=== PATIENT | female | born 1970 | race African-American/Black ===

== ENCOUNTER 2017-01-02 15:08 | Inpatient (IN) | payer OTHER, MEDICAID ==
[~2017-01-02] VITALS: Ht 170.2 cm; Wt 99.9 kg
[2017-01-02] MEDS ORDERED: BENA1TAB18 PO (15:14)
[2017-01-02] MEDS ORDERED: LISI-186 PO (15:14)
[2017-01-02] MEDS ORDERED: ASPI-1159 PO (15:14)
[2017-01-02] MEDS ORDERED: SODIUM CHLORIDE 0.9% 1000ML BAG (SEPSIS BOLUS) IV ONE (17:30)
[2017-01-02] MEDS ORDERED: PIPERACILLIN SODIUM/TAZOBACTAM 4.5 G in DEXT 5% WATER 100 ML IV SCH (17:30)
[2017-01-02 17:54] LABS: HEMATOCRIT. 24.4 % (36.0-48.0); HEMOGLOBIN. 7.7 g/dL (12.0-16.0); MEAN CORPUSCULAR HEMOGLOBIN 18.3 pg (28.0-32.0); MEAN CORPUSCULAR VOLUME 58.1 fL (81.0-99.0); MEAN PLATELET VOLUME 8.7 fl (7.4-10.4); PLATELET 534 x1000/uL (130-400); RED CELL DISTRIBUTION WIDTH 20.9 % (11.6-14.6)
[2017-01-02 17:57] LABS: CHLORIDE 101 mEq/L (98-107); INR 1.2; PROTHROMBIN TIME 12.1 sec (9.4-11.6)
[2017-01-02 18:02] LABS: CARBON DIOXIDE 26 mEq/L (21-32)
[2017-01-02 18:08] LABS: PLATELET ESTIMATE INCREASED
[2017-01-02 22:30] VITALS: BP_SYST 123; BP_SYST 160; BP_DIAS 71; BP_DIAS 84
[2017-01-02] MEDS ORDERED: VANCOMYCIN 1 G PREMIX 200 ML IV SCH (22:45)
[2017-01-02] MEDS ORDERED: ONDANSETRON HCL 4MG/2ML VIAL IV PRN (22:45)
[2017-01-02] MEDS ORDERED: ACETAMINOPHEN 325MG TABLET PO PRN (22:45)
[2017-01-02] MEDS ORDERED: MAGNESIUM/ALUMINUM HYDROXIDE/SIMETHICONE 30ML UDC PO PRN (22:45)
[2017-01-02] MEDS ORDERED: DEXTROSE 50% WATER 50ML SYRINGE IV PRN (22:45)
[2017-01-02] MEDS ORDERED: HYDROCODONE/ACETAMINOPHEN 5/325MG TABLET PO PRN (22:45)
[2017-01-02] MEDS ORDERED: CLONIDINE 0.1MG TABLET PO PRN (22:45)
[2017-01-02] MEDS ORDERED: DIPHENHYDRAMINE 50MG/ML VIAL IV PRN (22:45)
[2017-01-03] VITALS: BP 123/71
[2017-01-03] MEDS ORDERED: VANCOMYCIN IV NR (01:00)
[2017-01-03] MEDS ORDERED: WATER IV NR (01:00)
[2017-01-03] MEDS ORDERED: DEXTROSE 5% IV NR (01:00)
[2017-01-03 04:00] VITALS: BP 120/70
[2017-01-03] MEDS: SODIUM CHLORIDE 0.9% INJ 3ML FLUSH IVF SCH ×3 (05:48→21:13)
[2017-01-03] MEDS ORDERED: VANCOMYCIN 1250MG in DEXTROSE 5% WATER 250ML IV SCH (06:00)
[2017-01-03] MEDS: BLOOD SUGAR DIAGNOSTIC STRIP TEST SCH ×4 (06:05→21:12)
[2017-01-03] MEDS: INSULIN LISPRO 100 UNITS/ML SUBCUT SCH ×4 (06:24→21:00)
[2017-01-03] MEDS ORDERED: PIPERACILLIN/TAZ 3.375G PREMIX 50 ML IV SCH (07:00)
[2017-01-03 08:08] VITALS: BP 110/59
[2017-01-03] MEDS ORDERED: ENOXAPARIN 30MG/0.3ML SYR SUBCUT SCH (09:00)
[2017-01-03 12:00] VITALS: BP 117/63
[2017-01-03] MEDS: PIPERACILLIN/TAZ 3.375G PREMIX 50 ML IV SCH ×2 (13:14→17:09)
[2017-01-03 16:12] VITALS: BP 118/61
[2017-01-03 20:00] VITALS: BP 136/80
[2017-01-03] MEDS: VANCOMYCIN 1250MG in DEXTROSE 5% WATER 250ML IV SCH (21:13)
[2017-01-04] VITALS (9 sets, daily range): BP systolic 124–145; BP diastolic 72–89
[2017-01-04] MEDS: PIPERACILLIN/TAZ 3.375G PREMIX 50 ML IV SCH ×4 (00:47→17:13)
[2017-01-04] MEDS: BLOOD SUGAR DIAGNOSTIC STRIP TEST SCH ×4 (06:39→21:00)
[2017-01-04] MEDS: INSULIN LISPRO 100 UNITS/ML SUBCUT SCH ×4 (06:54→22:36)
[2017-01-04 06:55] LABS: BASOPHILS % 0.8 % (0.0-2.0); EOSINOPHILS % 2.6 % (0.0-5.0); LYMPHOCYTES % 16.4 % (20.0-50.0); MEAN CORPUSCULAR HEMOGLOBIN 18.7 pg (28.0-32.0); MEAN CORPUSCULAR VOLUME 58.7 fL (81.0-99.0); MEAN PLATELET VOLUME 8.7 fl (7.4-10.4); NEUTROPHILS % 71.2 % (40.0-76.0); PLATELET 453 x1000/uL (130-400); RED BLOOD CELL COUNT 3.58 mill/uL (4.2-5.4); RED CELL DISTRIBUTION WIDTH 21.1 % (11.6-14.6)
[2017-01-04] MEDS: SODIUM CHLORIDE 0.9% INJ 3ML FLUSH IVF SCH ×3 (06:55→22:31)
[2017-01-04 07:07] LABS: HEMOGLOBIN. 6.7 g/dL (12.0-16.0)
[2017-01-04 08:03] LABS: CARBON DIOXIDE 27 mEq/L (21-32); CHLORIDE 107 mEq/L (98-107)
[2017-01-04] MEDS: VANCOMYCIN 1250MG in DEXTROSE 5% WATER 250ML IV SCH (09:46)
[2017-01-04] MEDS: VANCOMYCIN 1 G PREMIX 200 ML IV SCH (17:13)
[2017-01-04 17:43] LABS: HEMATOCRIT 23.1 % (36.0-48.0); HEMOGLOBIN 7.5 g/dL (12.0-16.0)
[2017-01-04 19:51] LABS: TOTAL IRON BINDING CAPACITY 153 ug/dL (250-450)
[2017-01-05] MEDS: PIPERACILLIN/TAZ 3.375G PREMIX 50 ML IV SCH ×4 (00:06→18:49)
[2017-01-05] MEDS: VANCOMYCIN 1 G PREMIX 200 ML IV SCH ×3 (02:05→17:31)
[2017-01-05 04:00] VITALS: BP 157/97
[2017-01-05] MEDS: SODIUM CHLORIDE 0.9% INJ 3ML FLUSH IVF SCH ×3 (06:41→22:21)
[2017-01-05] MEDS: INSULIN LISPRO 100 UNITS/ML SUBCUT SCH ×4 (07:28→22:26)
[2017-01-05] MEDS: BLOOD SUGAR DIAGNOSTIC STRIP TEST SCH ×4 (07:29→21:00)
[2017-01-05 07:32] LABS: BASOPHILS % 0.7 % (0.0-2.0); EOSINOPHILS % 4.3 % (0.0-5.0); HEMATOCRIT. 22.9 % (36.0-48.0); HEMOGLOBIN. 7.4 g/dL (12.0-16.0); LYMPHOCYTES % 18.8 % (20.0-50.0); MEAN CORPUSCULAR HEMOGLOBIN 19.7 pg (28.0-32.0); MEAN CORPUSCULAR VOLUME 60.5 fL (81.0-99.0); MEAN PLATELET VOLUME 8.7 fl (7.4-10.4); MONOCYTES % 9.1 % (2.0-8.0); NEUTROPHILS % 67.1 % (40.0-76.0); PLATELET 439 x1000/uL (130-400); RED BLOOD CELL COUNT 3.78 mill/uL (4.2-5.4); RED CELL DISTRIBUTION WIDTH 22.7 % (11.6-14.6)
[2017-01-05 08:00] VITALS: BP 147/88
[2017-01-05] MEDS ORDERED: SILVER SULFADIAZINE 1% CREAM 50GM TOP SCH (09:00)
[2017-01-05] MEDS: SILVER SULFADIAZINE 1% CREAM 50GM TOP SCH (09:25)
[2017-01-05] MEDS: SODIUM HYPOCHLORITE 0.125% 473ML SOLUTION TOP SCH (09:25)
[2017-01-05 12:00] VITALS: BP 145/93
[2017-01-05 16:00] VITALS: BP 135/73
[2017-01-05 20:00] VITALS: BP 159/98
[2017-01-06] VITALS: BP 145/88
[2017-01-06] MEDS: PIPERACILLIN/TAZ 3.375G PREMIX 50 ML IV SCH ×4 (00:20→17:23)
[2017-01-06] MEDS: VANCOMYCIN 1 G PREMIX 200 ML IV SCH ×3 (02:04→17:23)
[2017-01-06 04:00] VITALS: BP 149/60
[2017-01-06] MEDS: BLOOD SUGAR DIAGNOSTIC STRIP TEST SCH ×3 (06:43→16:59)
[2017-01-06] MEDS: SODIUM CHLORIDE 0.9% INJ 3ML FLUSH IVF SCH ×2 (06:54→14:00)
[2017-01-06] MEDS: INSULIN LISPRO 100 UNITS/ML SUBCUT SCH ×3 (07:02→17:00)
[2017-01-06 08:00] VITALS: BP 147/97
[2017-01-06] MEDS: SILVER SULFADIAZINE 1% CREAM 50GM TOP SCH (09:10)
[2017-01-06] MEDS: SODIUM HYPOCHLORITE 0.125% 473ML SOLUTION TOP SCH (09:10)
[2017-01-06 12:00] VITALS: BP 159/94
[2017-01-06 16:48] VITALS: BP 138/64
== END 2017-01-06 18:41 | disposition home or self-care (01) | DRG 871 ==
LOC: ER 15:08 → 5WST 18:44 → EDBEDREQSVC 18:47 → EDBEDREQTM 18:47 → EDBEDREQ 18:47 → ENRESERV 19:56 → CANRESERV 19:57 → ENRESERV 19:57 → EDBEDREQ 22:03
PROVIDERS: ADMIT Internal Medicine; ATTEND Internal Medicine
PROC: 30233N1 Transfusion of Nonautologous Red Blood Cells into Peripheral Vein, Percutaneous Approach (ICD-10-PCS; principal; 2017-01-04)
DX: A41.9 Sepsis, unspecified organism (principal); E43 Unspecified severe protein-calorie malnutrition; E66.01 Morbid (severe) obesity due to excess calories; L03.116 Cellulitis of left lower limb; B35.1 Tinea unguium; E11.9 Type 2 diabetes mellitus without complications; D64.9 Anemia, unspecified; H50.10 Unspecified exotropia; I89.0 Lymphedema, not elsewhere classified; J45.909 Unspecified asthma, uncomplicated; I87.2 Venous insufficiency (chronic) (peripheral); L30.9 Dermatitis, unspecified; Z22.322 Carrier or suspected carrier of Methicillin resistant Staphylococcus aureus; Z68.34 Body mass index [BMI] 34.0-34.9, adult; Z79.82 Long term (current) use of aspirin; Z79.899 Other long term (current) drug therapy; Z83.3 Family history of diabetes mellitus
CPT/HCPCS: 36415; 71010; 73590; 73630; 73700; 80048; 80053; 80202; 82962; 83036; 83540; 83550; 83605; 85014; 85018; 85025; 85610; 86850; 86900; 86920; 87040; 93005; 96365; 97022; 97162; 99285; A6261; J1200; J1815; J2543; J3370; J7030; J7040; J7050; J7060; P9016

== ENCOUNTER 2018-04-23 13:42 | Inpatient (IN) | payer MEDICARE, MEDICAID, OTHER ==
[~2018-04-23] VITALS: Ht 160 cm; Wt 50.8 kg
[~2018-04-23 13:42] MED LIST: ASPI-1159 PO; BENA1TAB18 PO; INSULIN GLARGINE UD 100 UNITS/ML SYR SUBCUT SCH; LISI-186 PO
[2018-04-23] MEDS ORDERED: ABILIFY (14:49)
[2018-04-23] MEDS ORDERED: VANCOMYCIN 1 G PREMIX 200 ML IV ONE (15:30)
[2018-04-23] MEDS ORDERED: SODIUM CHLORIDE 0.9% 1000ML BAG (SEPSIS BOLUS) IV ONE (15:30)
[2018-04-23] MEDS ORDERED: PIPERACILLIN/TAZOBACTAM 3.375GM/50ML PREMIX IV ONE (15:30)
[2018-04-23 16:14] LABS: BASOPHILS % 0.7 % (0.0-2.0); EOSINOPHILS % 0.3 % (0.0-5.0); HEMATOCRIT. 24.5 % (36.0-48.0); HEMOGLOBIN. 7.6 g/dL (12.0-16.0); LYMPHOCYTES % 10.8 % (20.0-50.0); MEAN CORPUSCULAR VOLUME 57.9 fL (81.0-99.0); MEAN PLATELET VOLUME 8.6 fl (7.4-10.4); MONOCYTES % 6.7 % (2.0-8.0); NEUTROPHILS % 81.5 % (40.0-76.0); PLATELET 408 x1000/uL (130-400); RED BLOOD CELL COUNT 4.23 mill/uL (4.2-5.4); RED CELL DISTRIBUTION WIDTH 22.4 % (11.6-14.6)
[2018-04-23] MEDS ORDERED: PIPERACILLIN/TAZ 3.375G PREMIX 50 ML IV NR (16:15)
[2018-04-23 16:16] LABS: CHLORIDE 106 mEq/L (98-107); INR 1.1
[2018-04-23 16:30] LABS: HCG SCREEN NEGATIVE
[2018-04-23 16:55] LABS: PLATELET ESTIMATE SLIGHTLY INCREASED
[2018-04-23] MEDS ORDERED: ASPIRIN 325MG EC TABLET PO ONE (17:30)
[2018-04-23] MEDS ORDERED: FUROSEMIDE 40MG/4ML VIAL IVP ONE (17:30)
[2018-04-23 22:00] VITALS: BP 151/67
[2018-04-23 22:30] VITALS: BP_SYST 143; BP_SYST 151; BP_DIAS 67; BP_DIAS 71
[2018-04-23] MEDS ORDERED: GUAIFENESIN 200MG/10ML SUGAR FREE UDC PO PRN (23:00)
[2018-04-23] MEDS ORDERED: DEXTROSE 50% WATER 50ML SYRINGE IV PRN (23:00)
[2018-04-23] MEDS ORDERED: CEFAZOLIN 500 MG in DEXTROSE 5% WATER 50 ML IV SCH (23:00)
[2018-04-23] MEDS ORDERED: CLONIDINE 0.1MG TABLET PO PRN (23:00)
[2018-04-23] MEDS ORDERED: ACETAMINOPHEN 325MG TABLET PO PRN (23:00)
[2018-04-23] MEDS ORDERED: MAGNESIUM HYDROXIDE 400MG/5ML 30ML UDC PO PRN (23:00)
[2018-04-23] MEDS ORDERED: DIPHENHYDRAMINE 50MG/ML VIAL IV PRN (23:00)
[2018-04-23] MEDS ORDERED: MAGNESIUM/ALUMINUM HYDROXIDE/SIMETHICONE 30ML UDC PO PRN (23:00)
[2018-04-23] MEDS ORDERED: ONDANSETRON HCL 4MG/2ML INJ IV PRN (23:00)
[2018-04-24] VITALS: BP 147/71
[2018-04-24] MEDS: IRON SUCROSE COMPLEX 100 MG/5 ML ML IV SCH ×2 (00:16→20:45)
[2018-04-24] MEDS: CEFAZOLIN 500 MG in DEXTROSE 5% WATER 50 ML IV SCH ×3 (01:02→16:36)
[2018-04-24 02:15] LABS: TOTAL IRON BINDING CAPACITY 303 ug/dL (250-450)
[2018-04-24 04:00] VITALS: BP 123/77
[2018-04-24] MEDS: BLOOD SUGAR DIAGNOSTIC STRIP TEST SCH ×4 (06:09→20:14)
[2018-04-24 08:00] VITALS: BP 121/70
[2018-04-24] MEDS ORDERED: PNEUMOCOCCAL 23-VAL P-SAC VAC 0.5 ML IM ONE (08:00)
[2018-04-24] MEDS: INSULIN LISPRO 100 UNITS/ML SUBCUT SCH ×3 (08:10→20:14)
[2018-04-24] MEDS: ENOXAPARIN 30MG/0.3ML SYR SUBCUT SCH ×2 (09:43→20:46)
[2018-04-24] MEDS: SPIRONOLACTONE 25MG TABLET PO SCH (09:44)
[2018-04-24] MEDS: ASPIRIN 81MG EC TABLET PO SCH (09:44)
[2018-04-24] MEDS: LISINOPRIL 5MG TABLET PO SCH ×2 (09:45→20:45)
[2018-04-24] MEDS ORDERED: INFLUENZA VIRUS VACCINE(AFLURIA) 0.5ML SYR IM ONE (10:00)
[2018-04-24] MEDS: ATENOLOL 50 MG TABLET PO SCH (10:06)
[2018-04-24] MEDS: ARIPIPRAZOLE 10MG TABLET PO SCH (10:07)
[2018-04-24] MEDS: INSULIN GLARGINE UD 100 UNITS/ML SYR SUBCUT SCH (10:16)
[2018-04-24] MEDS: BUDESONIDE 0.5MG/2ML NEB HHN SCH ×2 (11:48→22:43)
[2018-04-24 12:00] VITALS: BP 115/73
[2018-04-24 16:00] VITALS: BP 126/71
[2018-04-24 20:00] VITALS: BP 113/66
[2018-04-24] MEDS: SODIUM CHLORIDE 0.9% INJ 3ML FLUSH IVF SCH (20:45)
[2018-04-24] MEDS: IPRATROPIUM/ALBUTEROL 0.5-3(2.5)MG/3ML NEB INH PRN (22:43)
[2018-04-25] VITALS (7 sets, daily range): BP systolic 106–138; BP diastolic 58–84
[2018-04-25] MEDS: CEFAZOLIN 500 MG in DEXTROSE 5% WATER 50 ML IV SCH ×3 (02:17→17:19)
[2018-04-25] MEDS: SODIUM CHLORIDE 0.9% INJ 3ML FLUSH IVF SCH ×3 (05:58→20:38)
[2018-04-25] MEDS: BLOOD SUGAR DIAGNOSTIC STRIP TEST SCH ×4 (07:37→20:37)
[2018-04-25] MEDS: ASPIRIN 81MG EC TABLET PO SCH (08:32)
[2018-04-25] MEDS: ARIPIPRAZOLE 10MG TABLET PO SCH (08:32)
[2018-04-25] MEDS: SPIRONOLACTONE 25MG TABLET PO SCH (08:35)
[2018-04-25] MEDS: LISINOPRIL 5MG TABLET PO SCH ×2 (08:35→20:37)
[2018-04-25] MEDS: ATENOLOL 50 MG TABLET PO SCH (08:35)
[2018-04-25] MEDS: ENOXAPARIN 30MG/0.3ML SYR SUBCUT SCH ×2 (08:36→20:37)
[2018-04-25] MEDS: INSULIN LISPRO 100 UNITS/ML SUBCUT SCH ×4 (08:36→20:47)
[2018-04-25] MEDS: BUDESONIDE 0.5MG/2ML NEB HHN SCH ×2 (09:39→20:52)
[2018-04-25] MEDS: IPRATROPIUM/ALBUTEROL 0.5-3(2.5)MG/3ML NEB INH PRN ×2 (09:40→20:53)
[2018-04-25] MEDS: INSULIN GLARGINE UD 100 UNITS/ML SYR SUBCUT SCH (10:50)
[2018-04-25] MEDS ORDERED: METOLAZONE 10MG TABLET PO NR (19:00)
[2018-04-25] MEDS: IRON SUCROSE COMPLEX 100 MG/5 ML ML IV SCH (20:37)
[2018-04-26] MEDS: CEFAZOLIN 500 MG in DEXTROSE 5% WATER 50 ML IV SCH ×3 (02:15→17:46)
[2018-04-26 04:00] VITALS: BP 118/61
[2018-04-26] MEDS: SODIUM CHLORIDE 0.9% INJ 3ML FLUSH IVF SCH ×2 (05:36→17:45)
[2018-04-26 07:20] LABS: BASOPHILS % 0.7 % (0.0-2.0); EOSINOPHILS % 2.7 % (0.0-5.0); HEMATOCRIT. 22.3 % (36.0-48.0); LYMPHOCYTES % 14.5 % (20.0-50.0); MEAN CORPUSCULAR VOLUME 57.6 fL (81.0-99.0); MEAN PLATELET VOLUME 8.9 fl (7.4-10.4); NEUTROPHILS % 72.1 % (40.0-76.0); PLATELET 339 x1000/uL (130-400); RED BLOOD CELL COUNT 3.88 mill/uL (4.2-5.4); RED CELL DISTRIBUTION WIDTH 21.7 % (11.6-14.6)
[2018-04-26] MEDS: INSULIN LISPRO 100 UNITS/ML SUBCUT SCH ×4 (07:57→21:00)
[2018-04-26] MEDS: BLOOD SUGAR DIAGNOSTIC STRIP TEST SCH ×4 (07:57→21:00)
[2018-04-26 08:00] VITALS: BP 136/69
[2018-04-26] MEDS: BUDESONIDE 0.5MG/2ML NEB HHN SCH ×2 (08:05→21:23)
[2018-04-26] MEDS: IPRATROPIUM/ALBUTEROL 0.5-3(2.5)MG/3ML NEB INH PRN ×2 (08:06→21:22)
[2018-04-26 08:24] LABS: CHLORIDE 108 mEq/L (98-107)
[2018-04-26] MEDS: ENOXAPARIN 30MG/0.3ML SYR SUBCUT SCH ×2 (09:00→20:18)
[2018-04-26] MEDS: ARIPIPRAZOLE 10MG TABLET PO SCH (09:45)
[2018-04-26] MEDS: ASPIRIN 81MG EC TABLET PO SCH (09:45)
[2018-04-26] MEDS: ATENOLOL 50 MG TABLET PO SCH (09:46)
[2018-04-26] MEDS: SPIRONOLACTONE 25MG TABLET PO SCH (09:46)
[2018-04-26] MEDS: LISINOPRIL 5MG TABLET PO SCH ×2 (09:46→20:18)
[2018-04-26] MEDS: INSULIN GLARGINE UD 100 UNITS/ML SYR SUBCUT SCH (09:47)
[2018-04-26 12:00] VITALS: BP 111/71
[2018-04-26] MEDS ORDERED: POTASSIUM CHLORIDE 20MEQ TABLET SR PO NR (17:00)
[2018-04-26] MEDS ORDERED: METOLAZONE 10MG TABLET PO NR (17:45)
[2018-04-26 20:00] VITALS: BP 121/75
[2018-04-26 23:33] VITALS: BP 135/80
[2018-04-27] MEDS: CEFAZOLIN 500 MG in DEXTROSE 5% WATER 50 ML IV SCH ×2 (01:40→09:12)
[2018-04-27] MEDS: SODIUM CHLORIDE 0.9% INJ 3ML FLUSH IVF SCH ×3 (01:42→12:42)
[2018-04-27 04:00] VITALS: BP 110/63
[2018-04-27] MEDS: SODIUM HYPOCHLORITE SOLUTION (0.5%)FULL STRENGTH TOP SCH ×2 (05:47→09:13)
[2018-04-27] MEDS: BLOOD SUGAR DIAGNOSTIC STRIP TEST SCH ×2 (06:44→12:08)
[2018-04-27] MEDS: INSULIN LISPRO 100 UNITS/ML SUBCUT SCH ×2 (06:44→12:42)
[2018-04-27 06:46] LABS: BASOPHILS % 0.8 % (0.0-2.0); EOSINOPHILS % 3.1 % (0.0-5.0); HEMOGLOBIN. 7.1 g/dL (12.0-16.0); LYMPHOCYTES % 14.9 % (20.0-50.0); MEAN CORPUSCULAR HEMOGLOBIN 18.6 pg (28.0-32.0); MEAN CORPUSCULAR VOLUME 57.8 fL (81.0-99.0); MEAN PLATELET VOLUME 8.7 fl (7.4-10.4); NEUTROPHILS % 70.2 % (40.0-76.0); PLATELET 361 x1000/uL (130-400); RED BLOOD CELL COUNT 3.81 mill/uL (4.2-5.4); RED CELL DISTRIBUTION WIDTH 21.9 % (11.6-14.6)
[2018-04-27 07:12] LABS: CHLORIDE 104 mEq/L (98-107)
[2018-04-27 08:00] VITALS: BP 111/69
[2018-04-27] MEDS: IPRATROPIUM/ALBUTEROL 0.5-3(2.5)MG/3ML NEB INH PRN (08:39)
[2018-04-27] MEDS: BUDESONIDE 0.5MG/2ML NEB HHN SCH (08:39)
[2018-04-27] MEDS: ENOXAPARIN 30MG/0.3ML SYR SUBCUT SCH (08:54)
[2018-04-27] MEDS: ASPIRIN 81MG EC TABLET PO SCH (09:12)
[2018-04-27] MEDS: LISINOPRIL 5MG TABLET PO SCH (09:12)
[2018-04-27] MEDS: SPIRONOLACTONE 25MG TABLET PO SCH (09:12)
[2018-04-27] MEDS: ARIPIPRAZOLE 10MG TABLET PO SCH (09:12)
[2018-04-27] MEDS: INSULIN GLARGINE UD 100 UNITS/ML SYR SUBCUT SCH (09:16)
[2018-04-27] MEDS: ATENOLOL 50 MG TABLET PO SCH (09:17)
[2018-04-27 12:00] VITALS: BP 108/76
[2018-04-27 14:23] VITALS: BP 108/76
== END 2018-04-27 14:55 | disposition home or self-care (01) | DRG 603 ==
LOC: ER 13:42 → 7WST 17:29 → EDBEDREQ 17:33 → ENRESERV 21:02
PROVIDERS: ADMIT Internal Medicine; ATTEND Internal Medicine
DX: L03.116 Cellulitis of left lower limb (principal); Z68.1 Body mass index [BMI] 19.9 or less, adult; E44.0 Moderate protein-calorie malnutrition; L30.9 Dermatitis, unspecified; E66.01 Morbid (severe) obesity due to excess calories; L03.115 Cellulitis of right lower limb; F32.9 Major depressive disorder, single episode, unspecified; D50.9 Iron deficiency anemia, unspecified; E11.9 Type 2 diabetes mellitus without complications; J45.909 Unspecified asthma, uncomplicated; F20.9 Schizophrenia, unspecified; I87.2 Venous insufficiency (chronic) (peripheral); I10 Essential (primary) hypertension; Z83.3 Family history of diabetes mellitus
CPT/HCPCS: 36415; 71045; 80048; 82962; 83540; 83550; 83605; 83735; 83880; 84145; 84484; 84703; 90686; 90732; 93005; 93970; 94640; 96365; 96368; 96372; 96375; 97022; 97162; 99285; J0690; J1650; J1815; J1940; J2543; J3370; J7030; J7040; J7060; J7620; J7626

== ENCOUNTER 2020-01-31 18:43 | Emergency (ER) | payer MEDICARE, MEDICAID ==
[~2020-01-31] VITALS: Ht 167.6 cm; Wt 91.0 kg
[~2020-01-31 18:43] MED LIST changes: -ASPI-1159 PO; +ASPI-1497 PO; -INSULIN GLARGINE UD 100 UNITS/ML SYR SUBCUT SCH
[2020-01-31] MEDS ORDERED: HALOPERIDOL LACTATE 5MG/ML VIAL IM ONE (20:45)
[2020-01-31] MEDS ORDERED: LORAZEPAM 2MG/ML CPJ IM ONE (21:15)
[2020-01-31 21:27] LABS: BASOPHILS % 0.7 % (0.0-2.0); EOSINOPHILS % 2.2 % (0.0-5.0); HEMATOCRIT. 32.4 % (36.0-48.0); HEMOGLOBIN. 11.2 g/dL (12.0-16.0); LYMPHOCYTES % 17.5 % (20.0-50.0); MEAN CORPUSCULAR HEMOGLOBIN 24.6 pg (28.0-32.0); MEAN CORPUSCULAR VOLUME 71.3 fL (81.0-99.0); MEAN PLATELET VOLUME 9.1 fl (7.4-10.4); MONOCYTES % 6.3 % (2.0-8.0); NEUTROPHILS % 73.3 % (40.0-76.0); PLATELET 254 x1000/uL (130-400); RED BLOOD CELL COUNT 4.55 mill/uL (4.2-5.4)
[2020-01-31 21:42] LABS: CHLORIDE 106 mEq/L (98-107)
[2020-01-31 21:48] LABS: ETHANOL BLOOD < 10 mg/dL
[2020-01-31 21:52] LABS: HCG SCREEN NEGATIVE
[2020-01-31] MEDS ORDERED: POTASSIUM CHLORIDE 20MEQ TABLET SR PO ONE (22:30)
[2020-01-31] MEDS ORDERED: POTASSIUM CHLORIDE INJ 40 MEQ in DEXT 5% WATER 250 ML IV ONE (22:30)
[2020-02-01] MEDS ORDERED: POTASSIUM CHLORIDE 20MEQ/PACKET PO ONE ×2 (01:00)
[2020-02-01] MEDS ORDERED: IBUPROFEN 600MG TABLET PO ONE (02:30)
[2020-02-01 02:46] LABS: CHLORIDE 110 mEq/L (98-107)
[2020-02-02] MEDS ORDERED: CLONIDINE 0.1MG TABLET PO ONE (12:15)
[2020-02-03 13:30] VITALS: BP 139/94
== END 2020-02-03 15:39 | disposition home or self-care (01) ==
LOC: ER 18:43
DX: R45.1 Restlessness and agitation (principal); E87.6 Hypokalemia; E11.9 Type 2 diabetes mellitus without complications; Z73.6 Limitation of activities due to disability
CPT/HCPCS: 36415; 80053; 80307; 80320; 80329; 84703; 85025; 96372; 99285; J1630; J2060; J3480; J7060; G0480

== ENCOUNTER 2022-01-07 15:51 | Inpatient (IN) | payer BC, MEDICAID ==
[~2022-01-07] VITALS: Ht 170.2 cm; Wt 81.2 kg
[~2022-01-07 15:51] MED LIST changes: +ABIL5 PO; +AMOX1TAB16 MT; +DOCU250C14 MT; +FERR325T23 MT; +FURO40TA5 MT; +FURO40TA5 PO; +LEVO-65 MT; +SERT50TA PO; +SPIR25TA6 PO; +SULF1TAB48 MT
[2022-01-07] MEDS ORDERED: VANCOMYCIN 1G PREMIX 200 ML IV SCH (19:00)
[2022-01-07] MEDS ORDERED: MORPHINE SULFATE 4 MG/ML CPJ (NOT FOR IM USE) IV ONE (20:15)
[2022-01-07] MEDS ORDERED: CEFTRIAXONE 1 G PREMIX 50 ML IV ONE (20:15)
[2022-01-07 20:21] LABS: BASOPHILS % 0.8 % (0.0-2.0); EOSINOPHILS % 0.3 % (0.0-5.0); HEMATOCRIT. 26.2 % (36.0-48.0); LYMPHOCYTES % 13.8 % (20.0-50.0); MEAN CORPUSCULAR HEMOGLOBIN 21.4 pg (28.0-32.0); MEAN CORPUSCULAR VOLUME 70.2 fL (81.0-99.0); MEAN PLATELET VOLUME 8.6 fl (7.4-10.4); MONOCYTES % 8.3 % (2.0-8.0); NEUTROPHILS % 76.8 % (40.0-76.0); PLATELET 494 x1000/uL (130-400); RED BLOOD CELL COUNT 3.73 mill/uL (4.2-5.4); RED CELL DISTRIBUTION WIDTH 24.6 % (11.6-14.6)
[2022-01-07 20:25] LABS: PROTHROMBIN TIME 11.2 sec (9.6-11.0)
[2022-01-07 20:26] LABS: CHLORIDE 105 mEq/L (98-107)
[2022-01-07 20:52] LABS: PLATELET ESTIMATE INCREASED
[2022-01-08] MEDS ORDERED: NALOXONE HCL 0.4MG/ML VIAL IV PRN (03:30)
[2022-01-08] MEDS: MORPHINE SULFATE 4 MG/ML CPJ (NOT FOR IM USE) IV PRN ×3 (03:49→22:04)
[2022-01-08 08:00] VITALS: BP 114/79
[2022-01-08] MEDS ORDERED: VANCOMYCIN 1250MG in DEXTROSE 5% WATER 250ML IV SCH (08:00)
[2022-01-08] MEDS: QUETIAPINE FUMARATE 50MG TABLET PO SCH (09:17)
[2022-01-08] MEDS: PIPERACILLIN/TAZOBACTAM 3.375 G in DEXTROSE 5% WATER 50 ML IV SCH ×3 (09:17→22:01)
[2022-01-08 10:57] VITALS: BP 114/79
[2022-01-08] MEDS: VANCOMYCIN 1G PREMIX 200 ML IV SCH ×2 (11:52→18:52)
[2022-01-08 12:00] VITALS: BP 111/64
[2022-01-08 20:15] VITALS: BP 123/85
[2022-01-08] MEDS: HYDROCODONE/ACETAMINOPHEN 10/325MG TABLET PO PRN (20:58)
[2022-01-08 23:47] VITALS: BP 114/73
[2022-01-09] VITALS (10 sets, daily range): BP systolic 109–149; BP diastolic 36–82
[2022-01-09] MEDS: VANCOMYCIN 1G PREMIX 200 ML IV SCH ×2 (01:29→21:10)
[2022-01-09] MEDS: HYDROCODONE/ACETAMINOPHEN 10/325MG TABLET PO PRN (04:56)
[2022-01-09] MEDS: PIPERACILLIN/TAZOBACTAM 3.375 G in DEXTROSE 5% WATER 50 ML IV SCH ×3 (05:54→21:10)
[2022-01-09] MEDS ORDERED: HALOPERIDOL LACTATE 5MG/ML VIAL IM SCH (07:15)
[2022-01-09 07:18] LABS: BASOPHILS % 0.7 % (0.0-2.0); EOSINOPHILS % 1.7 % (0.0-5.0); LYMPHOCYTES % 11.5 % (20.0-50.0); MEAN CORPUSCULAR HEMOGLOBIN 21.5 pg (28.0-32.0); MEAN CORPUSCULAR VOLUME 69.6 fL (81.0-99.0); MEAN PLATELET VOLUME 8.8 fl (7.4-10.4); MONOCYTES % 7.6 % (2.0-8.0); NEUTROPHILS % 78.5 % (40.0-76.0); PLATELET 433 x1000/uL (130-400); RED BLOOD CELL COUNT 2.73 mill/uL (4.2-5.4); RED CELL DISTRIBUTION WIDTH 23.8 % (11.6-14.6)
[2022-01-09 07:22] LABS: CHLORIDE 106 mEq/L (98-107)
[2022-01-09 07:52] LABS: HEMOGLOBIN. 5.9 g/dL (12.0-16.0)
[2022-01-09] MEDS ORDERED: LIDOCAINE HCL 2% JELLY 5ML TOP SCH (08:52)
[2022-01-09] MEDS: QUETIAPINE FUMARATE 50MG TABLET PO SCH (09:55)
[2022-01-09 10:05] LABS: PLATELET ESTIMATE INCREASED
[2022-01-09] MEDS ORDERED: MENTHOL/LANOLIN/CALAMINE/ZN OX OINT 71GM TOP PRN (16:30)
[2022-01-09] MEDS: DOCUSATE SODIUM 250MG CAPSULE PO SCH (17:30)
[2022-01-09] MEDS: FERROUS SULFATE 325MG TABLET PO SCH (17:34)
[2022-01-09] MEDS ORDERED: LIDOCAINE HCL 2% JELLY 5ML TOP NR (19:00)
[2022-01-10] VITALS (9 sets, daily range): BP systolic 115–135; BP diastolic 59–95
[2022-01-10] MEDS: PIPERACILLIN/TAZOBACTAM 3.375 G in DEXTROSE 5% WATER 50 ML IV SCH ×3 (06:16→22:00)
[2022-01-10] MEDS: VANCOMYCIN 1G PREMIX 200 ML IV SCH (09:20)
[2022-01-10] MEDS: DOCUSATE SODIUM 250MG CAPSULE PO SCH (09:21)
[2022-01-10] MEDS: QUETIAPINE FUMARATE 50MG TABLET PO SCH (09:21)
[2022-01-10] MEDS: FERROUS SULFATE 325MG TABLET PO SCH ×3 (09:21→18:18)
[2022-01-10 10:18] LABS: BASOPHILS % 0.7 % (0.0-2.0); EOSINOPHILS % 1.3 % (0.0-5.0); HEMATOCRIT. 25.7 % (36.0-48.0); HEMOGLOBIN. 8.4 g/dL (12.0-16.0); LYMPHOCYTES % 15.3 % (20.0-50.0); MEAN CORPUSCULAR HEMOGLOBIN 23.4 pg (28.0-32.0); MEAN PLATELET VOLUME 8.7 fl (7.4-10.4); MONOCYTES % 7.4 % (2.0-8.0); NEUTROPHILS % 75.3 % (40.0-76.0); PLATELET 500 x1000/uL (130-400); RED BLOOD CELL COUNT 3.57 mill/uL (4.2-5.4); RED CELL DISTRIBUTION WIDTH 24.8 % (11.6-14.6)
[2022-01-10 10:23] LABS: CHLORIDE 106 mEq/L (98-107)
[2022-01-10] MEDS: SERTRALINE HCL 50MG TABLET PO SCH (12:49)
[2022-01-10] MEDS: HYDROCODONE/ACETAMINOPHEN 10/325MG TABLET PO PRN ×2 (14:52→22:02)
[2022-01-10] MEDS: LINEZOLID 600 MG PREMIX 300 ML IV SCH (22:00)
[2022-01-11] VITALS: BP 129/56
[2022-01-11] MEDS: HYDROCODONE/ACETAMINOPHEN 10/325MG TABLET PO PRN ×2 (04:46→17:19)
[2022-01-11] MEDS: VANCOMYCIN 1G PREMIX 200 ML IV SCH (06:50)
[2022-01-11] MEDS: PIPERACILLIN/TAZOBACTAM 3.375 G in DEXTROSE 5% WATER 50 ML IV SCH ×3 (06:50→22:28)
[2022-01-11 06:55] LABS: CHLORIDE 104 mEq/L (98-107)
[2022-01-11 08:00] VITALS: BP 159/90
[2022-01-11] MEDS: DOCUSATE SODIUM 250MG CAPSULE PO SCH (09:00)
[2022-01-11] MEDS: FERROUS SULFATE 325MG TABLET PO SCH ×3 (09:49→17:18)
[2022-01-11] MEDS: SERTRALINE HCL 50MG TABLET PO SCH (09:49)
[2022-01-11] MEDS: QUETIAPINE FUMARATE 50MG TABLET PO SCH (09:50)
[2022-01-11] MEDS: LINEZOLID 600 MG PREMIX 300 ML IV SCH ×2 (09:50→22:29)
[2022-01-11 12:00] VITALS: BP 119/72
[2022-01-11 16:00] VITALS: BP 139/81
[2022-01-11 17:44] LABS: BASOPHILS % 0.9 % (0.0-2.0); EOSINOPHILS % 3.2 % (0.0-5.0); HEMATOCRIT. 25.6 % (36.0-48.0); HEMOGLOBIN. 8.5 g/dL (12.0-16.0); MEAN CORPUSCULAR HEMOGLOBIN 23.6 pg (28.0-32.0); MEAN CORPUSCULAR VOLUME 71.2 fL (81.0-99.0); MEAN PLATELET VOLUME 8.4 fl (7.4-10.4); MONOCYTES % 8.8 % (2.0-8.0); NEUTROPHILS % 72.1 % (40.0-76.0); PLATELET 491 x1000/uL (130-400)
[2022-01-11 18:14] LABS: CHLORIDE 107 mEq/L (98-107)
[2022-01-11 18:40] LABS: PLATELET ESTIMATE MARKEDLY INCREASED
[2022-01-11 20:00] VITALS: BP 160/79
[2022-01-12] VITALS: BP 141/68
[2022-01-12 04:00] VITALS: BP 129/67
[2022-01-12] MEDS: PIPERACILLIN/TAZOBACTAM 3.375 G in DEXTROSE 5% WATER 50 ML IV SCH ×3 (06:50→22:00)
[2022-01-12 08:00] VITALS: BP 159/90
[2022-01-12] MEDS: LINEZOLID 600 MG PREMIX 300 ML IV SCH ×2 (08:46→19:43)
[2022-01-12] MEDS: DOCUSATE SODIUM 250MG CAPSULE PO SCH (08:46)
[2022-01-12] MEDS: SERTRALINE HCL 50MG TABLET PO SCH (08:46)
[2022-01-12] MEDS: QUETIAPINE FUMARATE 50MG TABLET PO SCH (08:46)
[2022-01-12] MEDS: FERROUS SULFATE 325MG TABLET PO SCH ×3 (08:46→18:30)
[2022-01-12 12:00] VITALS: BP 132/76
[2022-01-12 16:00] VITALS: BP 130/68
[2022-01-12 20:00] VITALS: BP 160/81
[2022-01-13] VITALS: BP 147/67
[2022-01-13] MEDS: HYDROCODONE/ACETAMINOPHEN 10/325MG TABLET PO PRN ×3 (00:08→20:21)
[2022-01-13 04:00] VITALS: BP 130/71
[2022-01-13 08:00] VITALS: BP 166/95
[2022-01-13] MEDS: DOCUSATE SODIUM 250MG CAPSULE PO SCH (09:00)
[2022-01-13] MEDS: QUETIAPINE FUMARATE 50MG TABLET PO SCH ×2 (09:28→20:20)
[2022-01-13] MEDS: FERROUS SULFATE 325MG TABLET PO SCH ×3 (09:28→18:15)
[2022-01-13] MEDS: SERTRALINE HCL 50MG TABLET PO SCH (09:28)
[2022-01-13] MEDS: LINEZOLID 600 MG PREMIX 300 ML IV SCH ×2 (09:28→22:07)
[2022-01-13] MEDS ORDERED: ARIPIPRAZOLE 5MG TABLET PO SCH (13:00)
[2022-01-13] MEDS: ARIPIPRAZOLE 5MG TABLET PO SCH (13:37)
[2022-01-13] MEDS: PIPERACILLIN/TAZOBACTAM 3.375 G in DEXTROSE 5% WATER 50 ML IV SCH ×2 (13:38→23:48)
[2022-01-13 16:00] VITALS: BP 145/85
[2022-01-13] MEDS: AMLODIPINE 10MG TABLET PO SCH (16:16)
[2022-01-13 20:00] VITALS: BP 134/77
[2022-01-14] VITALS: BP 134/77
[2022-01-14] MEDS: HYDROCODONE/ACETAMINOPHEN 10/325MG TABLET PO PRN ×2 (02:58→09:52)
[2022-01-14 08:00] VITALS: BP 137/77
[2022-01-14] MEDS: AMLODIPINE 10MG TABLET PO SCH (09:30)
[2022-01-14] MEDS: FERROUS SULFATE 325MG TABLET PO SCH ×3 (09:30→17:33)
[2022-01-14] MEDS: ARIPIPRAZOLE 5MG TABLET PO SCH (09:30)
[2022-01-14] MEDS: DOCUSATE SODIUM 250MG CAPSULE PO SCH (09:30)
[2022-01-14] MEDS: SERTRALINE HCL 50MG TABLET PO SCH (09:30)
[2022-01-14] MEDS: LINEZOLID 600 MG PREMIX 300 ML IV SCH ×2 (09:52→20:24)
[2022-01-14 12:00] VITALS: BP 135/76
[2022-01-14 16:00] VITALS: BP 135/76
[2022-01-14 20:00] VITALS: BP 128/76
[2022-01-14] MEDS: QUETIAPINE FUMARATE 50MG TABLET PO SCH (20:42)
[2022-01-15] VITALS: BP 133/74
[2022-01-15 04:00] VITALS: BP 125/65
[2022-01-15] MEDS: ARIPIPRAZOLE 5MG TABLET PO SCH (08:41)
[2022-01-15] MEDS: FERROUS SULFATE 325MG TABLET PO SCH ×2 (08:41→12:00)
[2022-01-15] MEDS: DOCUSATE SODIUM 250MG CAPSULE PO SCH (08:41)
[2022-01-15] MEDS: SERTRALINE HCL 50MG TABLET PO SCH (08:41)
[2022-01-15] MEDS: LINEZOLID 600MG TABLET PO SCH ×2 (08:42→20:13)
[2022-01-15] MEDS: HYDROCODONE/ACETAMINOPHEN 10/325MG TABLET PO PRN ×2 (08:57→20:13)
[2022-01-15] MEDS: AMLODIPINE 10MG TABLET PO SCH (09:02)
[2022-01-15 10:40] VITALS: BP 138/81
[2022-01-15 12:00] VITALS: BP 142/54
[2022-01-15 16:03] VITALS: BP 125/68
[2022-01-15 19:25] VITALS: BP 140/95
[2022-01-15] MEDS: QUETIAPINE FUMARATE 50MG TABLET PO SCH (20:13)
[2022-01-16 00:33] VITALS: BP 136/80
[2022-01-16 00:44] VITALS: BP 136/80
[2022-01-16 08:00] VITALS: BP 148/91
[2022-01-16] MEDS: SERTRALINE HCL 50MG TABLET PO SCH (08:24)
[2022-01-16] MEDS: ARIPIPRAZOLE 5MG TABLET PO SCH (08:24)
[2022-01-16] MEDS: LINEZOLID 600MG TABLET PO SCH ×2 (08:24→21:27)
[2022-01-16] MEDS: FERROUS SULFATE 325MG TABLET PO SCH ×4 (08:24→17:05)
[2022-01-16] MEDS: HYDROCODONE/ACETAMINOPHEN 10/325MG TABLET PO PRN ×3 (08:24→21:27)
[2022-01-16] MEDS: DOCUSATE SODIUM 250MG CAPSULE PO SCH (08:25)
[2022-01-16] MEDS: AMLODIPINE 10MG TABLET PO SCH (08:25)
[2022-01-16 12:00] VITALS: BP 130/60
[2022-01-16 16:00] VITALS: BP 127/71
[2022-01-16] MEDS ORDERED: NALOXONE HCL 0.4MG/ML VIAL IV PRN (20:00)
[2022-01-16] MEDS: QUETIAPINE FUMARATE 50MG TABLET PO SCH (21:27)
[2022-01-16 22:09] LABS: BASOPHILS % 1.3 % (0.0-2.0); HEMATOCRIT. 27.9 % (36.0-48.0); HEMOGLOBIN. 9.1 g/dL (12.0-16.0); LYMPHOCYTES % 26.6 % (20.0-50.0); MEAN CORPUSCULAR HEMOGLOBIN 23.1 pg (28.0-32.0); MEAN CORPUSCULAR VOLUME 70.8 fL (81.0-99.0); MEAN PLATELET VOLUME 8.2 fl (7.4-10.4); MONOCYTES % 7.7 % (2.0-8.0); NEUTROPHILS % 61.4 % (40.0-76.0); PLATELET 554 x1000/uL (130-400); RED BLOOD CELL COUNT 3.93 mill/uL (4.2-5.4); RED CELL DISTRIBUTION WIDTH 25.9 % (11.6-14.6)
[2022-01-16 22:33] LABS: CHLORIDE 105 mEq/L (98-107)
[2022-01-17] MEDS: HYDROCODONE/ACETAMINOPHEN 10/325MG TABLET PO PRN ×3 (05:47→18:59)
[2022-01-17 08:00] VITALS: BP 144/81
[2022-01-17] MEDS ORDERED: POTASSIUM CHLORIDE 20MEQ TABLET SR PO NR (09:30)
[2022-01-17] MEDS: DOCUSATE SODIUM 250MG CAPSULE PO SCH (09:51)
[2022-01-17] MEDS: AMLODIPINE 10MG TABLET PO SCH (09:51)
[2022-01-17] MEDS: SERTRALINE HCL 50MG TABLET PO SCH (09:51)
[2022-01-17] MEDS: FERROUS SULFATE 325MG TABLET PO SCH ×3 (09:51→16:50)
[2022-01-17] MEDS: LINEZOLID 600MG TABLET PO SCH ×2 (09:51→20:46)
[2022-01-17] MEDS: ARIPIPRAZOLE 5MG TABLET PO SCH (09:52)
[2022-01-17 12:00] VITALS: BP 144/90
[2022-01-17] MEDS: ACETAMINOPHEN 325MG TABLET PO PRN (13:31)
[2022-01-17 16:00] VITALS: BP 135/83
[2022-01-17] MEDS: QUETIAPINE FUMARATE 50MG TABLET PO SCH (20:47)
[2022-01-18] MEDS: HYDROCODONE/ACETAMINOPHEN 10/325MG TABLET PO PRN ×2 (05:16→21:07)
[2022-01-18] MEDS: SERTRALINE HCL 50MG TABLET PO SCH (09:41)
[2022-01-18] MEDS: AMLODIPINE 10MG TABLET PO SCH (09:42)
[2022-01-18] MEDS: DOCUSATE SODIUM 250MG CAPSULE PO SCH (09:43)
[2022-01-18] MEDS: ARIPIPRAZOLE 5MG TABLET PO SCH (09:43)
[2022-01-18] MEDS: LINEZOLID 600MG TABLET PO SCH ×2 (09:43→21:05)
[2022-01-18] MEDS: FERROUS SULFATE 325MG TABLET PO SCH ×3 (09:43→17:50)
[2022-01-18 12:00] VITALS: BP 123/65
[2022-01-18 16:00] VITALS: BP 107/63
[2022-01-18 20:00] VITALS: BP 138/75
[2022-01-18] MEDS: QUETIAPINE FUMARATE 50MG TABLET PO SCH (21:05)
[2022-01-19] VITALS: BP 126/67
[2022-01-19 04:00] VITALS: BP 149/82
[2022-01-19 08:00] VITALS: BP 151/85
[2022-01-19 08:11] LABS: BASOPHILS % 0.8 % (0.0-2.0); EOSINOPHILS % 2.6 % (0.0-5.0); HEMATOCRIT. 30.6 % (36.0-48.0); HEMOGLOBIN. 9.8 g/dL (12.0-16.0); LYMPHOCYTES % 18.8 % (20.0-50.0); MEAN CORPUSCULAR HEMOGLOBIN 22.5 pg (28.0-32.0); MEAN CORPUSCULAR VOLUME 70.1 fL (81.0-99.0); MEAN PLATELET VOLUME 8.1 fl (7.4-10.4); MONOCYTES % 6.5 % (2.0-8.0); NEUTROPHILS % 71.3 % (40.0-76.0); PLATELET 476 x1000/uL (130-400); RED BLOOD CELL COUNT 4.37 mill/uL (4.2-5.4); RED CELL DISTRIBUTION WIDTH 26.3 % (11.6-14.6)
[2022-01-19] MEDS: FERROUS SULFATE 325MG TABLET PO SCH ×2 (08:22→14:47)
[2022-01-19] MEDS: ARIPIPRAZOLE 5MG TABLET PO SCH (08:22)
[2022-01-19] MEDS: SERTRALINE HCL 50MG TABLET PO SCH (08:23)
[2022-01-19] MEDS: ACETAMINOPHEN 325MG TABLET PO PRN ×2 (08:29→14:30)
[2022-01-19] MEDS: DOCUSATE SODIUM 250MG CAPSULE PO SCH (08:30)
[2022-01-19] MEDS: LINEZOLID 600MG TABLET PO SCH ×2 (08:30→22:15)
[2022-01-19] MEDS: AMLODIPINE 10MG TABLET PO SCH (08:36)
[2022-01-19 08:37] LABS: CHLORIDE 104 mEq/L (98-107)
[2022-01-19 12:00] VITALS: BP 132/85
[2022-01-19 16:00] VITALS: BP 138/68
[2022-01-19 20:00] VITALS: BP 135/77
[2022-01-19] MEDS: QUETIAPINE FUMARATE 50MG TABLET PO SCH (22:15)
[2022-01-19] MEDS: HYDROCODONE/ACETAMINOPHEN 10/325MG TABLET PO PRN (22:18)
[2022-01-20] VITALS: BP 130/75
[2022-01-20 04:00] VITALS: BP 127/72
[2022-01-20 08:00] VITALS: BP 137/78
[2022-01-20] MEDS: FUROSEMIDE 40MG TABLET PO SCH (09:18)
[2022-01-20] MEDS: AMLODIPINE 10MG TABLET PO SCH (09:18)
[2022-01-20] MEDS: ARIPIPRAZOLE 5MG TABLET PO SCH (09:20)
[2022-01-20] MEDS: FERROUS SULFATE 325MG TABLET PO SCH ×4 (09:20→18:12)
[2022-01-20] MEDS: HYDROCODONE/ACETAMINOPHEN 10/325MG TABLET PO PRN ×2 (09:20→22:41)
[2022-01-20] MEDS: DOCUSATE SODIUM 250MG CAPSULE PO SCH (09:23)
[2022-01-20] MEDS: SERTRALINE HCL 50MG TABLET PO SCH (09:23)
[2022-01-20 12:00] VITALS: BP_SYST 126; BP_SYST 128; BP_DIAS 69; BP_DIAS 82
[2022-01-20] MEDS: ACETAMINOPHEN 325MG TABLET PO PRN (12:58)
[2022-01-20 16:00] VITALS: BP 116/65
[2022-01-20 20:00] VITALS: BP 145/76
[2022-01-20] MEDS: QUETIAPINE FUMARATE 50MG TABLET PO SCH (20:54)
[2022-01-21] VITALS: BP 129/71
[2022-01-21 04:00] VITALS: BP 116/70
[2022-01-21 08:00] VITALS: BP 132/87
[2022-01-21] MEDS: AMLODIPINE 10MG TABLET PO SCH (09:30)
[2022-01-21] MEDS: FERROUS SULFATE 325MG TABLET PO SCH ×3 (09:30→18:19)
[2022-01-21] MEDS: DOCUSATE SODIUM 250MG CAPSULE PO SCH (09:30)
[2022-01-21] MEDS: ARIPIPRAZOLE 5MG TABLET PO SCH (09:30)
[2022-01-21] MEDS: FUROSEMIDE 40MG TABLET PO SCH (09:30)
[2022-01-21] MEDS: SERTRALINE HCL 50MG TABLET PO SCH (09:31)
[2022-01-21 12:00] VITALS: BP 130/80
[2022-01-21 16:00] VITALS: BP 121/74
[2022-01-21 20:00] VITALS: BP 114/76
[2022-01-21] MEDS: QUETIAPINE FUMARATE 50MG TABLET PO SCH (21:09)
[2022-01-21] MEDS: HYDROCODONE/ACETAMINOPHEN 10/325MG TABLET PO PRN (21:10)
[2022-01-22] VITALS: BP 116/72
[2022-01-22 04:00] VITALS: BP 127/70
[2022-01-22 08:00] VITALS: BP 115/82
[2022-01-22] MEDS: AMLODIPINE 10MG TABLET PO SCH (08:46)
[2022-01-22] MEDS: DOCUSATE SODIUM 250MG CAPSULE PO SCH (08:46)
[2022-01-22] MEDS: FUROSEMIDE 40MG TABLET PO SCH (08:46)
[2022-01-22] MEDS: ARIPIPRAZOLE 5MG TABLET PO SCH (08:46)
[2022-01-22] MEDS: FERROUS SULFATE 325MG TABLET PO SCH ×3 (08:46→18:08)
[2022-01-22] MEDS: SERTRALINE HCL 50MG TABLET PO SCH (08:50)
[2022-01-22 12:00] VITALS: BP 100/69
[2022-01-22 16:00] VITALS: BP 117/71
[2022-01-22 20:00] VITALS: BP 117/62
[2022-01-22] MEDS: QUETIAPINE FUMARATE 50MG TABLET PO SCH (21:01)
[2022-01-22] MEDS: ACETAMINOPHEN 325MG TABLET PO PRN (21:01)
[2022-01-23] VITALS: BP 103/72
[2022-01-23 04:00] VITALS: BP 131/73
[2022-01-23 08:00] VITALS: BP 115/80
[2022-01-23] MEDS: DOCUSATE SODIUM 250MG CAPSULE PO SCH (08:36)
[2022-01-23] MEDS: FERROUS SULFATE 325MG TABLET PO SCH ×3 (08:36→18:57)
[2022-01-23] MEDS: FUROSEMIDE 40MG TABLET PO SCH (08:36)
[2022-01-23] MEDS: SERTRALINE HCL 50MG TABLET PO SCH (08:36)
[2022-01-23] MEDS: ARIPIPRAZOLE 5MG TABLET PO SCH (08:36)
[2022-01-23] MEDS: AMLODIPINE 10MG TABLET PO SCH (08:37)
[2022-01-23 12:00] VITALS: BP 119/68
[2022-01-23 15:59] VITALS: BP 124/81
[2022-01-23] MEDS: QUETIAPINE FUMARATE 50MG TABLET PO SCH (20:35)
[2022-01-23] MEDS: HYDROCODONE/ACETAMINOPHEN 10/325MG TABLET PO PRN (20:35)
[2022-01-24 08:00] VITALS: BP 130/74
[2022-01-24] MEDS: FERROUS SULFATE 325MG TABLET PO SCH ×3 (10:04→17:50)
[2022-01-24] MEDS: AMLODIPINE 10MG TABLET PO SCH (10:05)
[2022-01-24] MEDS: FUROSEMIDE 40MG TABLET PO SCH (10:05)
[2022-01-24] MEDS: SERTRALINE HCL 50MG TABLET PO SCH (10:05)
[2022-01-24] MEDS: DOCUSATE SODIUM 250MG CAPSULE PO SCH (10:05)
[2022-01-24] MEDS: ARIPIPRAZOLE 5MG TABLET PO SCH (10:05)
[2022-01-24 12:00] VITALS: BP 118/72
[2022-01-24 16:00] VITALS: BP 122/80
[2022-01-24 20:00] VITALS: BP 136/81
[2022-01-24] MEDS: ZOLPIDEM TARTRATE 5MG TABLET PO PRN (20:37)
[2022-01-24] MEDS: QUETIAPINE FUMARATE 50MG TABLET PO SCH (20:37)
[2022-01-24] MEDS: ACETAMINOPHEN 325MG TABLET PO PRN (20:38)
[2022-01-25] VITALS: BP 125/79
[2022-01-25 04:00] VITALS: BP 115/70
[2022-01-25 08:00] VITALS: BP 120/81
[2022-01-25] MEDS: DOCUSATE SODIUM 250MG CAPSULE PO SCH (08:47)
[2022-01-25] MEDS: ARIPIPRAZOLE 5MG TABLET PO SCH (08:48)
[2022-01-25] MEDS: SERTRALINE HCL 50MG TABLET PO SCH (08:48)
[2022-01-25] MEDS: FERROUS SULFATE 325MG TABLET PO SCH ×3 (08:48→20:39)
[2022-01-25] MEDS: FUROSEMIDE 40MG TABLET PO SCH (08:48)
[2022-01-25] MEDS: AMLODIPINE 10MG TABLET PO SCH (08:48)
[2022-01-25 12:00] VITALS: BP 127/70
[2022-01-25 16:00] VITALS: BP 116/66
[2022-01-25] MEDS: QUETIAPINE FUMARATE 50MG TABLET PO SCH (20:39)
[2022-01-25] MEDS: ACETAMINOPHEN 325MG TABLET PO PRN (20:48)
[2022-01-26 08:00] VITALS: BP 133/76
[2022-01-26] MEDS: DOCUSATE SODIUM 250MG CAPSULE PO SCH (08:43)
[2022-01-26] MEDS: FUROSEMIDE 40MG TABLET PO SCH (08:43)
[2022-01-26] MEDS: FERROUS SULFATE 325MG TABLET PO SCH ×3 (08:43→18:38)
[2022-01-26] MEDS: SERTRALINE HCL 50MG TABLET PO SCH (08:44)
[2022-01-26] MEDS: AMLODIPINE 10MG TABLET PO SCH (08:44)
[2022-01-26] MEDS: ARIPIPRAZOLE 5MG TABLET PO SCH (08:44)
[2022-01-26 12:00] VITALS: BP 131/76
[2022-01-26 16:00] VITALS: BP 129/80
[2022-01-26] MEDS: ACETAMINOPHEN 325MG TABLET PO PRN (18:41)
[2022-01-26] MEDS: QUETIAPINE FUMARATE 50MG TABLET PO SCH (20:24)
[2022-01-27] MEDS: ACETAMINOPHEN 325MG TABLET PO PRN ×2 (00:52→21:28)
[2022-01-27 08:00] VITALS: BP 135/66
[2022-01-27] MEDS: FERROUS SULFATE 325MG TABLET PO SCH (09:30)
[2022-01-27] MEDS: FUROSEMIDE 40MG TABLET PO SCH (09:30)
[2022-01-27] MEDS: AMLODIPINE 10MG TABLET PO SCH (09:30)
[2022-01-27] MEDS: DOCUSATE SODIUM 250MG CAPSULE PO SCH (09:30)
[2022-01-27] MEDS: SERTRALINE HCL 50MG TABLET PO SCH (09:30)
[2022-01-27] MEDS: ARIPIPRAZOLE 5MG TABLET PO SCH (09:31)
[2022-01-27 12:00] VITALS: BP 130/86
[2022-01-27 16:00] VITALS: BP 105/69
[2022-01-27 20:00] VITALS: BP 122/76
[2022-01-27] MEDS: ZOLPIDEM TARTRATE 5MG TABLET PO PRN (21:29)
[2022-01-27] MEDS: QUETIAPINE FUMARATE 50MG TABLET PO SCH (21:29)
[2022-01-27] MEDS ORDERED: LIDOCAINE HCL 2% JELLY 5ML TOP ONE (23:15)
[2022-01-27] MEDS ORDERED: LIDOCAINE 2% JELLY PREFILLED SYRINGE MM NR (23:30)
[2022-01-28] VITALS: BP 119/62
[2022-01-28 04:00] VITALS: BP 117/62
[2022-01-28 08:00] VITALS: BP 136/94
[2022-01-28] MEDS: ARIPIPRAZOLE 5MG TABLET PO SCH (10:47)
[2022-01-28] MEDS: DOCUSATE SODIUM 250MG CAPSULE PO SCH (10:48)
[2022-01-28] MEDS: SERTRALINE HCL 50MG TABLET PO SCH (10:48)
[2022-01-28] MEDS: FUROSEMIDE 40MG TABLET PO SCH (10:48)
[2022-01-28] MEDS: AMLODIPINE 10MG TABLET PO SCH (10:48)
[2022-01-28 12:00] VITALS: BP 145/85
[2022-01-28] MEDS: FERROUS SULFATE 325MG TABLET PO SCH ×2 (12:46→17:50)
[2022-01-28 16:00] VITALS: BP 126/72
[2022-01-28 20:00] VITALS: BP 108/66
[2022-01-28] MEDS: ZOLPIDEM TARTRATE 5MG TABLET PO PRN (21:52)
[2022-01-28] MEDS: QUETIAPINE FUMARATE 50MG TABLET PO SCH (21:52)
[2022-01-29] VITALS: BP 110/66
[2022-01-29 04:00] VITALS: BP 122/81
[2022-01-29] MEDS: SERTRALINE HCL 50MG TABLET PO SCH (10:00)
[2022-01-29] MEDS: DOCUSATE SODIUM 250MG CAPSULE PO SCH (10:00)
[2022-01-29] MEDS: ARIPIPRAZOLE 5MG TABLET PO SCH (10:00)
[2022-01-29] MEDS: AMLODIPINE 10MG TABLET PO SCH (10:01)
[2022-01-29] MEDS: FUROSEMIDE 40MG TABLET PO SCH (10:01)
[2022-01-29] MEDS: FERROUS SULFATE 325MG TABLET PO SCH ×3 (10:02→17:54)
[2022-01-29] MEDS: ACETAMINOPHEN 325MG TABLET PO PRN ×3 (10:51→23:44)
[2022-01-29 12:00] VITALS: BP 142/88
[2022-01-29 16:00] VITALS: BP 115/80
[2022-01-29] MEDS: QUETIAPINE FUMARATE 50MG TABLET PO SCH (21:43)
[2022-01-30] MEDS: FERROUS SULFATE 325MG TABLET PO SCH ×3 (06:58→17:47)
[2022-01-30 08:00] VITALS: BP 128/82
[2022-01-30] MEDS: FUROSEMIDE 40MG TABLET PO SCH (08:33)
[2022-01-30] MEDS: SERTRALINE HCL 50MG TABLET PO SCH (08:33)
[2022-01-30] MEDS: DOCUSATE SODIUM 250MG CAPSULE PO SCH (08:34)
[2022-01-30] MEDS: AMLODIPINE 10MG TABLET PO SCH (08:34)
[2022-01-30] MEDS: ARIPIPRAZOLE 5MG TABLET PO SCH (08:34)
[2022-01-30 12:00] VITALS: BP 128/89
[2022-01-30 16:00] VITALS: BP 112/64
[2022-01-30] MEDS: QUETIAPINE FUMARATE 50MG TABLET PO SCH (22:21)
[2022-01-30] MEDS: ACETAMINOPHEN 325MG TABLET PO PRN (22:21)
[2022-01-31] MEDS: FERROUS SULFATE 325MG TABLET PO SCH ×3 (06:36→17:47)
[2022-01-31 08:00] VITALS: BP 141/99
[2022-01-31] MEDS: DOCUSATE SODIUM 250MG CAPSULE PO SCH (09:00)
[2022-01-31] MEDS: FUROSEMIDE 40MG TABLET PO SCH (09:22)
[2022-01-31] MEDS: SERTRALINE HCL 50MG TABLET PO SCH (09:23)
[2022-01-31] MEDS: AMLODIPINE 10MG TABLET PO SCH (09:23)
[2022-01-31] MEDS: ACETAMINOPHEN 325MG TABLET PO PRN ×2 (09:24→21:08)
[2022-01-31] MEDS: ARIPIPRAZOLE 5MG TABLET PO SCH (09:32)
[2022-01-31 12:00] VITALS: BP 129/75
[2022-01-31 16:00] VITALS: BP 112/63
[2022-01-31] MEDS: SODIUM HYPOCHLORITE 0.125% 473ML SOLUTION TOP SCH (16:00)
[2022-01-31] MEDS: QUETIAPINE FUMARATE 50MG TABLET PO SCH (21:08)
[2022-02-01] MEDS: FERROUS SULFATE 325MG TABLET PO SCH ×2 (06:11→08:32)
[2022-02-01] MEDS: ACETAMINOPHEN 325MG TABLET PO PRN ×3 (06:19→23:13)
[2022-02-01 08:01] VITALS: BP 122/82
[2022-02-01] MEDS: ARIPIPRAZOLE 5MG TABLET PO SCH (08:29)
[2022-02-01] MEDS: DOCUSATE SODIUM 250MG CAPSULE PO SCH (08:29)
[2022-02-01] MEDS: FUROSEMIDE 40MG TABLET PO SCH (08:30)
[2022-02-01] MEDS: SERTRALINE HCL 50MG TABLET PO SCH (08:31)
[2022-02-01] MEDS: AMLODIPINE 10MG TABLET PO SCH (08:31)
[2022-02-01] MEDS: SODIUM HYPOCHLORITE 0.125% 473ML SOLUTION TOP SCH (08:32)
[2022-02-01 12:00] VITALS: BP 130/80
[2022-02-01] MEDS ORDERED: POTASSIUM CHLORIDE 20MEQ TABLET SR PO ONE ×2 (12:15)
[2022-02-01 16:00] VITALS: BP 122/75
[2022-02-01 16:39] LABS: BASOPHILS % 1.1 % (0.0-2.0); EOSINOPHILS % 4.1 % (0.0-5.0); HEMATOCRIT. 30.7 % (36.0-48.0); HEMOGLOBIN. 10.1 g/dL (12.0-16.0); LYMPHOCYTES % 31.2 % (20.0-50.0); MEAN CORPUSCULAR HEMOGLOBIN 23.6 pg (28.0-32.0); MEAN CORPUSCULAR VOLUME 71.8 fL (81.0-99.0); MEAN PLATELET VOLUME 8.8 fl (7.4-10.4); MONOCYTES % 9.9 % (2.0-8.0); NEUTROPHILS % 53.7 % (40.0-76.0); PLATELET 421 x1000/uL (130-400); RED BLOOD CELL COUNT 4.28 mill/uL (4.2-5.4); RED CELL DISTRIBUTION WIDTH 26.9 % (11.6-14.6)
[2022-02-01 16:59] LABS: CHLORIDE 105 mEq/L (98-107)
[2022-02-01] MEDS: QUETIAPINE FUMARATE 50MG TABLET PO SCH (21:29)
[2022-02-02] MEDS: FERROUS SULFATE 325MG TABLET PO SCH ×2 (07:50→12:50)
[2022-02-02 08:00] VITALS: BP 140/93
[2022-02-02] MEDS: SODIUM HYPOCHLORITE 0.125% 473ML SOLUTION TOP SCH (09:00)
[2022-02-02] MEDS: FUROSEMIDE 40MG TABLET PO SCH (09:03)
[2022-02-02] MEDS: AMLODIPINE 10MG TABLET PO SCH (09:03)
[2022-02-02] MEDS: ARIPIPRAZOLE 5MG TABLET PO SCH (09:03)
[2022-02-02] MEDS: DOCUSATE SODIUM 250MG CAPSULE PO SCH (09:03)
[2022-02-02] MEDS: SERTRALINE HCL 50MG TABLET PO SCH (09:04)
[2022-02-02 12:00] VITALS: BP 125/78
[2022-02-02 15:52] VITALS: BP 110/75
[2022-02-02] MEDS: QUETIAPINE FUMARATE 50MG TABLET PO SCH (20:26)
[2022-02-03 08:00] VITALS: BP 131/84
[2022-02-03] MEDS: ARIPIPRAZOLE 5MG TABLET PO SCH (08:54)
[2022-02-03] MEDS: DOCUSATE SODIUM 250MG CAPSULE PO SCH (08:55)
[2022-02-03] MEDS: FERROUS SULFATE 325MG TABLET PO SCH ×4 (08:55→17:58)
[2022-02-03] MEDS: FUROSEMIDE 40MG TABLET PO SCH (08:55)
[2022-02-03] MEDS: SERTRALINE HCL 50MG TABLET PO SCH (08:55)
[2022-02-03] MEDS: SODIUM HYPOCHLORITE 0.125% 473ML SOLUTION TOP SCH (09:00)
[2022-02-03 12:00] VITALS: BP_SYST 128; BP_SYST 131; BP_DIAS 68; BP_DIAS 84
[2022-02-03] MEDS: AMLODIPINE 10MG TABLET PO SCH (13:19)
[2022-02-03 16:00] VITALS: BP 113/80
[2022-02-03 20:00] VITALS: BP 151/74
[2022-02-03] MEDS: QUETIAPINE FUMARATE 50MG TABLET PO SCH (20:59)
[2022-02-03] MEDS: ACETAMINOPHEN 325MG TABLET PO PRN (20:59)
[2022-02-04] VITALS: BP 153/80
[2022-02-04 04:00] VITALS: BP 129/63
[2022-02-04] MEDS: FERROUS SULFATE 325MG TABLET PO SCH ×3 (06:57→17:07)
[2022-02-04 08:00] VITALS: BP 140/85
[2022-02-04] MEDS: ARIPIPRAZOLE 5MG TABLET PO SCH (09:08)
[2022-02-04] MEDS: AMLODIPINE 10MG TABLET PO SCH (09:08)
[2022-02-04] MEDS: SERTRALINE HCL 50MG TABLET PO SCH (09:08)
[2022-02-04] MEDS: FUROSEMIDE 40MG TABLET PO SCH (09:08)
[2022-02-04] MEDS: DOCUSATE SODIUM 250MG CAPSULE PO SCH (09:08)
[2022-02-04] MEDS: ACETAMINOPHEN 325MG TABLET PO PRN ×2 (09:09→17:07)
[2022-02-04] MEDS: SODIUM HYPOCHLORITE 0.125% 473ML SOLUTION TOP SCH (09:10)
[2022-02-04 12:00] VITALS: BP 122/69
[2022-02-04 16:00] VITALS: BP 132/73
[2022-02-04 20:00] VITALS: BP 122/73
[2022-02-04] MEDS: QUETIAPINE FUMARATE 50MG TABLET PO SCH (21:10)
[2022-02-05] VITALS: BP 142/83
[2022-02-05 04:00] VITALS: BP 130/78
[2022-02-05] MEDS: FERROUS SULFATE 325MG TABLET PO SCH ×3 (07:50→18:48)
[2022-02-05 08:00] VITALS: BP 142/86
[2022-02-05] MEDS: FUROSEMIDE 40MG TABLET PO SCH (10:17)
[2022-02-05] MEDS: ARIPIPRAZOLE 5MG TABLET PO SCH (10:17)
[2022-02-05] MEDS: SERTRALINE HCL 50MG TABLET PO SCH (10:18)
[2022-02-05] MEDS: AMLODIPINE 10MG TABLET PO SCH (10:18)
[2022-02-05] MEDS: ACETAMINOPHEN 325MG TABLET PO PRN ×2 (10:18→20:51)
[2022-02-05] MEDS: DOCUSATE SODIUM 250MG CAPSULE PO SCH (10:18)
[2022-02-05] MEDS: SODIUM HYPOCHLORITE 0.125% 473ML SOLUTION TOP SCH (10:18)
[2022-02-05 12:00] VITALS: BP 121/75
[2022-02-05 20:31] VITALS: BP 145/87
[2022-02-06] VITALS (7 sets, daily range): BP systolic 132–146; BP diastolic 54–103
[2022-02-06] MEDS: ARIPIPRAZOLE 5MG TABLET PO SCH (08:53)
[2022-02-06] MEDS: FUROSEMIDE 40MG TABLET PO SCH (08:53)
[2022-02-06] MEDS: SERTRALINE HCL 50MG TABLET PO SCH (08:53)
[2022-02-06] MEDS: DOCUSATE SODIUM 250MG CAPSULE PO SCH (08:53)
[2022-02-06] MEDS: FERROUS SULFATE 325MG TABLET PO SCH ×3 (08:53→18:28)
[2022-02-06] MEDS: AMLODIPINE 10MG TABLET PO SCH (09:08)
[2022-02-06] MEDS: SODIUM HYPOCHLORITE 0.125% 473ML SOLUTION TOP SCH (13:30)
[2022-02-06 20:34] LABS: EOSINOPHILS % 3.7 % (0.0-5.0); HEMATOCRIT. 30.1 % (36.0-48.0); HEMOGLOBIN. 9.8 g/dL (12.0-16.0); LYMPHOCYTES % 27.3 % (20.0-50.0); MEAN CORPUSCULAR HEMOGLOBIN 23.5 pg (28.0-32.0); MEAN CORPUSCULAR VOLUME 72.3 fL (81.0-99.0); MONOCYTES % 8.5 % (2.0-8.0); NEUTROPHILS % 59.5 % (40.0-76.0); PLATELET 353 x1000/uL (130-400); RED BLOOD CELL COUNT 4.17 mill/uL (4.2-5.4); RED CELL DISTRIBUTION WIDTH 26.7 % (11.6-14.6)
[2022-02-06 20:45] LABS: CHLORIDE 108 mEq/L (98-107)
[2022-02-07 00:42] VITALS: BP 136/68
[2022-02-07 04:23] VITALS: BP 130/68
[2022-02-07] MEDS: ARIPIPRAZOLE 5MG TABLET PO SCH (09:25)
[2022-02-07] MEDS: AMLODIPINE 10MG TABLET PO SCH (09:25)
[2022-02-07] MEDS: FUROSEMIDE 40MG TABLET PO SCH (09:25)
[2022-02-07] MEDS: SERTRALINE HCL 50MG TABLET PO SCH (09:26)
[2022-02-07] MEDS: SODIUM HYPOCHLORITE 0.125% 473ML SOLUTION TOP SCH (09:26)
[2022-02-07 11:44] VITALS: BP 137/80
[2022-02-07 12:00] VITALS: BP 135/89
== END 2022-02-07 15:01 | disposition home health service (06) | DRG 570 ==
LOC: ER 15:51 → MICUSO 20:59 → EDBEDREQTM 21:10 → EDBEDREQ 21:10 → 6EST 01-08 05:10
PROVIDERS: ADMIT Internal Medicine; ATTEND Internal Medicine
PROC: 0KBN0ZZ Excision of Right Hip Muscle, Open Approach (ICD-10-PCS; 2022-01-09)
PROC: 0JBN0ZZ Excision of Right Lower Leg Subcutaneous Tissue and Fascia, Open Approach (ICD-10-PCS; principal; 2022-01-10)
PROC: 0JBR0ZZ Excision of Left Foot Subcutaneous Tissue and Fascia, Open Approach (ICD-10-PCS; 2022-01-10)
PROC: 0JBP0ZZ Excision of Left Lower Leg Subcutaneous Tissue and Fascia, Open Approach (ICD-10-PCS; 2022-01-10)
PROC: 0LBJ0ZZ Excision of Right Hip Tendon, Open Approach (ICD-10-PCS; 2022-01-16)
PROC: 0JBP0ZZ Excision of Left Lower Leg Subcutaneous Tissue and Fascia, Open Approach (ICD-10-PCS; 2022-02-01)
PROC: 0JBP0ZZ Excision of Left Lower Leg Subcutaneous Tissue and Fascia, Open Approach (ICD-10-PCS; 2022-02-01)
PROC: 0JBQ0ZZ Excision of Right Foot Subcutaneous Tissue and Fascia, Open Approach (ICD-10-PCS; 2022-02-01)
PROC: 0JBQ0ZZ Excision of Right Foot Subcutaneous Tissue and Fascia, Open Approach (ICD-10-PCS; 2022-02-01)
PROC: 0KBP0ZZ Excision of Left Hip Muscle, Open Approach (ICD-10-PCS; 2022-02-01)
PROC: 0KBN0ZZ Excision of Right Hip Muscle, Open Approach (ICD-10-PCS; 2022-02-01)
PROC: 0JBP0ZZ Excision of Left Lower Leg Subcutaneous Tissue and Fascia, Open Approach (ICD-10-PCS; 2022-02-01)
PROC: 0JBP0ZZ Excision of Left Lower Leg Subcutaneous Tissue and Fascia, Open Approach (ICD-10-PCS; 2022-02-01)
PROC: 0JBQ0ZZ Excision of Right Foot Subcutaneous Tissue and Fascia, Open Approach (ICD-10-PCS; 2022-02-01)
PROC: 0KBP0ZZ Excision of Left Hip Muscle, Open Approach (ICD-10-PCS; 2022-02-01)
PROC: 0KBN0ZZ Excision of Right Hip Muscle, Open Approach (ICD-10-PCS; 2022-02-01)
PROC: 0KBN0ZZ Excision of Right Hip Muscle, Open Approach (ICD-10-PCS; 2022-02-01)
PROC: 0JBQ0ZZ Excision of Right Foot Subcutaneous Tissue and Fascia, Open Approach (ICD-10-PCS; 2022-02-01)
PROC: 0JBP0ZZ Excision of Left Lower Leg Subcutaneous Tissue and Fascia, Open Approach (ICD-10-PCS; 2022-02-01)
PROC: 0JBQ0ZZ Excision of Right Foot Subcutaneous Tissue and Fascia, Open Approach (ICD-10-PCS; 2022-02-01)
PROC: 0JBP0ZZ Excision of Left Lower Leg Subcutaneous Tissue and Fascia, Open Approach (ICD-10-PCS; 2022-02-01)
DX: L89.214 Pressure ulcer of right hip, stage 4 (principal); E43 Unspecified severe protein-calorie malnutrition; F33.1 Major depressive disorder, recurrent, moderate; L89.154 Pressure ulcer of sacral region, stage 4; L89.324 Pressure ulcer of left buttock, stage 4; F20.9 Schizophrenia, unspecified; E11.9 Type 2 diabetes mellitus without complications; I10 Essential (primary) hypertension; D50.9 Iron deficiency anemia, unspecified; I87.8 Other specified disorders of veins; S81.802A Unspecified open wound, left lower leg, initial encounter; S81.801A Unspecified open wound, right lower leg, initial encounter; I89.0 Lymphedema, not elsewhere classified; Z68.28 Body mass index [BMI] 28.0-28.9, adult; Z20.822 Contact with and (suspected) exposure to COVID-19; Z79.899 Other long term (current) drug therapy; X58.XXXA Exposure to other specified factors, initial encounter; Y93.89 Activity, other specified; Y92.89 Other specified places as the place of occurrence of the external cause; Y99.8 Other external cause status
CPT/HCPCS: 36415; 73590; 80048; 80053; 80202; 82040; 84134; 84145; 85025; 85651; 86850; 86900; 86920; 87015; 87045; 87426; 87427; 87449; 93005; 99285; A6261; C1893; J0696; J1630; J2020; J2270; J2543; J3370; J7060; P9016

== ENCOUNTER 2022-02-13 14:48 | Inpatient (IN) | payer BC, MEDICAID ==
[~2022-02-13] VITALS: Ht 167.6 cm; Wt 81.6 kg
[2022-02-13 16:26] LABS: BASOPHILS % 0.5 % (0.0-2.0); HEMATOCRIT. 29.5 % (36.0-48.0); HEMOGLOBIN. 9.8 g/dL (12.0-16.0); LYMPHOCYTES % 10.7 % (20.0-50.0); MEAN CORPUSCULAR HEMOGLOBIN 23.7 pg (28.0-32.0); MEAN CORPUSCULAR VOLUME 71.5 fL (81.0-99.0); MEAN PLATELET VOLUME 8.9 fl (7.4-10.4); NEUTROPHILS % 79.8 % (40.0-76.0); PLATELET 281 x1000/uL (130-400); RED BLOOD CELL COUNT 4.12 mill/uL (4.2-5.4); RED CELL DISTRIBUTION WIDTH 26.8 % (11.6-14.6)
[2022-02-13 16:34] LABS: CHLORIDE 105 mEq/L (98-107)
[2022-02-13] MEDS ORDERED: LISINOPRIL 5MG TABLET PO ONE (16:45)
[2022-02-13] MEDS ORDERED: POTASSIUM CHLORIDE 20MEQ TABLET SR PO ONE (16:45)
[2022-02-13] MEDS ORDERED: FUROSEMIDE 40MG/4ML VIAL IVP ONE (16:45)
[2022-02-13 16:50] LABS: PLATELET ESTIMATE NORMAL
[2022-02-13] MEDS ORDERED: SODIUM CHLORIDE 0.9% 1,000 ML IV ONE (20:00)
[2022-02-13] MEDS ORDERED: KETOROLAC 15MG/ML VIAL IV ONE (20:45)
[2022-02-14 04:00] VITALS: BP 153/53
[2022-02-14] MEDS ORDERED: DEXTROSE 50% WATER 50ML SYRINGE IV PRN (04:45)
[2022-02-14] MEDS ORDERED: NALOXONE HCL 0.4MG/ML VIAL IV PRN (05:15)
[2022-02-14 05:32] VITALS: BP 153/63
[2022-02-14] MEDS ORDERED: CEFAZOLIN SODIUM 1000MG/VIAL IV SCH (06:00)
[2022-02-14] MEDS: BLOOD SUGAR DIAGNOSTIC STRIP TEST SCH ×4 (07:20→21:18)
[2022-02-14] MEDS: INSULIN LISPRO 100 UNITS/ML SUBCUT SCH ×4 (07:50→21:00)
[2022-02-14 08:00] VITALS: BP 133/79
[2022-02-14] MEDS ORDERED: SPIRONOLACTONE 25MG TABLET PO SCH (09:00)
[2022-02-14] MEDS: DOCUSATE SODIUM 250MG CAPSULE PO SCH ×2 (09:53→17:00)
[2022-02-14] MEDS: HYDROCODONE/ACETAMINOPHEN 10/325MG TABLET PO PRN ×3 (09:54→21:07)
[2022-02-14] MEDS: FUROSEMIDE 40MG/4ML VIAL IVP SCH ×2 (09:54→17:56)
[2022-02-14] MEDS: ASPIRIN 81MG TABLET PO SCH (09:54)
[2022-02-14] MEDS: SPIRONOLACTONE 25MG TABLET PO SCH (09:54)
[2022-02-14] MEDS: SERTRALINE HCL 50MG TABLET PO SCH (09:54)
[2022-02-14] MEDS: CEFAZOLIN 1000MG PREMIX 50 ML IV SCH ×3 (09:57→21:05)
[2022-02-14 12:00] VITALS: BP 129/81
[2022-02-14] MEDS ORDERED: MAGNESIUM/ALUMINUM HYDROXIDE/SIMETHICONE 30ML UDC PO PRN (12:30)
[2022-02-14] MEDS ORDERED: CLONIDINE 0.1MG TABLET PO PRN (12:30)
[2022-02-14] MEDS ORDERED: ONDANSETRON HCL 4MG/2ML INJ IV PRN (12:30)
[2022-02-14] MEDS ORDERED: ACETAMINOPHEN 325MG TABLET PO PRN (12:30)
[2022-02-14] MEDS ORDERED: INFLUENZA VACCINE 05/PF 0.5 ML SYRINGE IM ONE (14:00)
[2022-02-14] MEDS: ARIPIPRAZOLE 5MG TABLET PO SCH (14:08)
[2022-02-14] MEDS: ENOXAPARIN 40MG/0.4ML SYR SUBCUT SCH (14:08)
[2022-02-14] MEDS ORDERED: PNEUMOCOCCAL 23-VAL P-SAC VAC 0.5 ML IM ONE (14:30)
[2022-02-14 16:00] VITALS: BP 132/89
[2022-02-14 20:00] VITALS: BP 108/51
[2022-02-15] VITALS (7 sets, daily range): BP systolic 107–133; BP diastolic 58–92
[2022-02-15] MEDS: FUROSEMIDE 40MG/4ML VIAL IVP SCH ×2 (05:18→20:03)
[2022-02-15] MEDS: CEFAZOLIN 1000MG PREMIX 50 ML IV SCH ×3 (05:18→22:03)
[2022-02-15] MEDS: BLOOD SUGAR DIAGNOSTIC STRIP TEST SCH ×4 (06:41→20:04)
[2022-02-15] MEDS: HYDROCODONE/ACETAMINOPHEN 10/325MG TABLET PO PRN ×2 (06:47→17:18)
[2022-02-15] MEDS: OMEPRAZOLE 20MG CAPSULE EXTENDED RELEASE PO SCH (06:47)
[2022-02-15] MEDS: INSULIN LISPRO 100 UNITS/ML SUBCUT SCH ×4 (07:50→21:00)
[2022-02-15] MEDS: ARIPIPRAZOLE 5MG TABLET PO SCH (08:33)
[2022-02-15] MEDS: SPIRONOLACTONE 25MG TABLET PO SCH (08:33)
[2022-02-15] MEDS: DOCUSATE SODIUM 250MG CAPSULE PO SCH ×2 (08:34→17:24)
[2022-02-15] MEDS: SERTRALINE HCL 50MG TABLET PO SCH (08:34)
[2022-02-15] MEDS: ASPIRIN 81MG TABLET PO SCH (08:34)
[2022-02-15] MEDS: ENOXAPARIN 40MG/0.4ML SYR SUBCUT SCH (09:10)
[2022-02-15 16:27] LABS: BASOPHILS % 1.2 % (0.0-2.0); EOSINOPHILS % 3.4 % (0.0-5.0); HEMATOCRIT. 25.8 % (36.0-48.0); HEMOGLOBIN. 8.6 g/dL (12.0-16.0); LYMPHOCYTES % 18.6 % (20.0-50.0); MEAN CORPUSCULAR HEMOGLOBIN 23.8 pg (28.0-32.0); MEAN CORPUSCULAR VOLUME 71.5 fL (81.0-99.0); MEAN PLATELET VOLUME 8.9 fl (7.4-10.4); MONOCYTES % 9.1 % (2.0-8.0); NEUTROPHILS % 67.7 % (40.0-76.0); PLATELET 251 x1000/uL (130-400); RED CELL DISTRIBUTION WIDTH 26.2 % (11.6-14.6)
[2022-02-15 16:41] LABS: CHLORIDE 102 mEq/L (98-107)
[2022-02-16] MEDS: HYDROCODONE/ACETAMINOPHEN 10/325MG TABLET PO PRN (02:52)
[2022-02-16] MEDS: CEFAZOLIN 1000MG PREMIX 50 ML IV SCH ×3 (06:32→22:48)
[2022-02-16] MEDS: FUROSEMIDE 40MG/4ML VIAL IVP SCH ×2 (06:32→17:28)
[2022-02-16] MEDS: OMEPRAZOLE 20MG CAPSULE EXTENDED RELEASE PO SCH (06:32)
[2022-02-16 06:40] VITALS: BP 133/72
[2022-02-16] MEDS: BLOOD SUGAR DIAGNOSTIC STRIP TEST SCH ×4 (06:43→21:46)
[2022-02-16] MEDS: INSULIN LISPRO 100 UNITS/ML SUBCUT SCH ×4 (07:50→21:00)
[2022-02-16 08:00] VITALS: BP 158/100
[2022-02-16] MEDS: SPIRONOLACTONE 25MG TABLET PO SCH (08:30)
[2022-02-16] MEDS: ASPIRIN 81MG TABLET PO SCH (08:30)
[2022-02-16] MEDS: ARIPIPRAZOLE 5MG TABLET PO SCH (08:31)
[2022-02-16] MEDS: SERTRALINE HCL 50MG TABLET PO SCH (08:31)
[2022-02-16] MEDS: DOCUSATE SODIUM 250MG CAPSULE PO SCH ×2 (08:31→17:00)
[2022-02-16] MEDS: ENOXAPARIN 40MG/0.4ML SYR SUBCUT SCH (08:33)
[2022-02-16 10:03] LABS: BASOPHILS % 0.9 % (0.0-2.0); EOSINOPHILS % 3.5 % (0.0-5.0); HEMOGLOBIN. 9.5 g/dL (12.0-16.0); MEAN CORPUSCULAR HEMOGLOBIN 23.4 pg (28.0-32.0); MEAN CORPUSCULAR VOLUME 71.5 fL (81.0-99.0); MEAN PLATELET VOLUME 8.7 fl (7.4-10.4); MONOCYTES % 8.2 % (2.0-8.0); NEUTROPHILS % 67.4 % (40.0-76.0); PLATELET 289 x1000/uL (130-400); RED BLOOD CELL COUNT 4.06 mill/uL (4.2-5.4); RED CELL DISTRIBUTION WIDTH 25.8 % (11.6-14.6)
[2022-02-16 10:19] LABS: CHLORIDE 99 mEq/L (98-107)
[2022-02-16 12:00] VITALS: BP 138/86
[2022-02-16 16:00] VITALS: BP 131/88
[2022-02-16 20:00] VITALS: BP 114/66
[2022-02-16] MEDS: FAMOTIDINE 20MG TABLET PO SCH (21:46)
[2022-02-17] MEDS: CEFAZOLIN 1000MG PREMIX 50 ML IV SCH ×3 (06:06→23:29)
[2022-02-17] MEDS: FUROSEMIDE 40MG/4ML VIAL IVP SCH ×2 (06:06→17:29)
[2022-02-17] MEDS: BLOOD SUGAR DIAGNOSTIC STRIP TEST SCH ×4 (06:15→21:00)
[2022-02-17] MEDS: INSULIN LISPRO 100 UNITS/ML SUBCUT SCH ×4 (07:50→23:34)
[2022-02-17 08:00] VITALS: BP 143/99
[2022-02-17] MEDS: ARIPIPRAZOLE 5MG TABLET PO SCH (09:36)
[2022-02-17] MEDS: SERTRALINE HCL 50MG TABLET PO SCH (09:36)
[2022-02-17] MEDS: SPIRONOLACTONE 25MG TABLET PO SCH (09:36)
[2022-02-17] MEDS: ENOXAPARIN 40MG/0.4ML SYR SUBCUT SCH (09:38)
[2022-02-17] MEDS: ASPIRIN 81MG TABLET PO SCH (09:45)
[2022-02-17] MEDS: FAMOTIDINE 20MG TABLET PO SCH ×2 (09:45→23:29)
[2022-02-17] MEDS: DOCUSATE SODIUM 250MG CAPSULE PO SCH ×2 (09:45→17:29)
[2022-02-17 12:00] VITALS: BP 108/70
[2022-02-17] MEDS: SODIUM HYPOCHLORITE 0.125% 473ML SOLUTION TOP SCH (13:30)
[2022-02-17 16:00] VITALS: BP 124/79
[2022-02-17 20:00] VITALS: BP 117/80
[2022-02-17] MEDS: HYDROCODONE/ACETAMINOPHEN 10/325MG TABLET PO PRN (23:35)
[2022-02-18] VITALS: BP 106/75
[2022-02-18 04:00] VITALS: BP 126/71
[2022-02-18] MEDS: FUROSEMIDE 40MG/4ML VIAL IVP SCH ×2 (06:22→18:10)
[2022-02-18] MEDS: CEFAZOLIN 1000MG PREMIX 50 ML IV SCH ×3 (06:22→22:18)
[2022-02-18] MEDS: BLOOD SUGAR DIAGNOSTIC STRIP TEST SCH ×4 (07:49→21:00)
[2022-02-18 08:00] VITALS: BP 127/78
[2022-02-18] MEDS: DOCUSATE SODIUM 250MG CAPSULE PO SCH ×2 (08:29→18:08)
[2022-02-18] MEDS: ARIPIPRAZOLE 5MG TABLET PO SCH (08:29)
[2022-02-18] MEDS: ASPIRIN 81MG TABLET PO SCH (08:30)
[2022-02-18] MEDS: FAMOTIDINE 20MG TABLET PO SCH ×2 (08:30→22:18)
[2022-02-18] MEDS: SERTRALINE HCL 50MG TABLET PO SCH (08:30)
[2022-02-18] MEDS: SPIRONOLACTONE 25MG TABLET PO SCH (08:30)
[2022-02-18] MEDS: ENOXAPARIN 40MG/0.4ML SYR SUBCUT SCH (08:32)
[2022-02-18] MEDS: INSULIN LISPRO 100 UNITS/ML SUBCUT SCH ×4 (08:33→21:00)
[2022-02-18] MEDS: SODIUM HYPOCHLORITE 0.125% 473ML SOLUTION TOP SCH (09:00)
[2022-02-18 12:00] VITALS: BP 139/74
[2022-02-18 16:00] VITALS: BP 144/85
[2022-02-19] VITALS: BP 147/85
[2022-02-19] MEDS: CEFAZOLIN 1000MG PREMIX 50 ML IV SCH (05:27)
[2022-02-19] MEDS: FUROSEMIDE 40MG/4ML VIAL IVP SCH (05:27)
[2022-02-19] MEDS: BLOOD SUGAR DIAGNOSTIC STRIP TEST SCH ×2 (07:20→12:24)
[2022-02-19] MEDS: INSULIN LISPRO 100 UNITS/ML SUBCUT SCH ×2 (07:50→12:25)
[2022-02-19 08:39] VITALS: BP 137/82
[2022-02-19] MEDS: ARIPIPRAZOLE 5MG TABLET PO SCH (08:46)
[2022-02-19] MEDS: FAMOTIDINE 20MG TABLET PO SCH (08:46)
[2022-02-19] MEDS: ASPIRIN 81MG TABLET PO SCH (08:46)
[2022-02-19] MEDS: SERTRALINE HCL 50MG TABLET PO SCH (08:46)
[2022-02-19] MEDS: DOCUSATE SODIUM 250MG CAPSULE PO SCH (08:46)
[2022-02-19] MEDS: SPIRONOLACTONE 25MG TABLET PO SCH (08:46)
[2022-02-19] MEDS: SODIUM HYPOCHLORITE 0.125% 473ML SOLUTION TOP SCH (08:47)
[2022-02-19] MEDS: ENOXAPARIN 40MG/0.4ML SYR SUBCUT SCH (08:47)
[2022-02-19 12:00] VITALS: BP 111/89
[2022-02-20] MEDS ORDERED: ARIPIPRAZOLE 5MG TABLET PO SCH (09:00)
== END 2022-02-19 13:57 | disposition left against medical advice (07) | DRG 570 ==
LOC: ER 14:48 → MICUSO 23:41 → 6EST 02-14 02:46
PROVIDERS: ADMIT Internal Medicine; ATTEND Internal Medicine
PROC: 0LBJ0ZZ Excision of Right Hip Tendon, Open Approach (ICD-10-PCS; principal; 2022-02-18)
PROC: 0JBN0ZZ Excision of Right Lower Leg Subcutaneous Tissue and Fascia, Open Approach (ICD-10-PCS; 2022-02-18)
PROC: 0JBQ0ZZ Excision of Right Foot Subcutaneous Tissue and Fascia, Open Approach (ICD-10-PCS; 2022-02-18)
PROC: 0JBP0ZZ Excision of Left Lower Leg Subcutaneous Tissue and Fascia, Open Approach (ICD-10-PCS; 2022-02-18)
DX: L89.214 Pressure ulcer of right hip, stage 4 (principal); E43 Unspecified severe protein-calorie malnutrition; F33.1 Major depressive disorder, recurrent, moderate; S82.209A Unspecified fracture of shaft of unspecified tibia, initial encounter for closed fracture; L89.154 Pressure ulcer of sacral region, stage 4; S80.922A Unspecified superficial injury of left lower leg, initial encounter; D64.9 Anemia, unspecified; E11.9 Type 2 diabetes mellitus without complications; I11.0 Hypertensive heart disease with heart failure; S80.921A Unspecified superficial injury of right lower leg, initial encounter; I50.9 Heart failure, unspecified; F41.9 Anxiety disorder, unspecified; Z68.29 Body mass index [BMI] 29.0-29.9, adult; Z53.29 Procedure and treatment not carried out because of patient's decision for other reasons; X58.XXXA Exposure to other specified factors, initial encounter; Y93.89 Activity, other specified; Y92.89 Other specified places as the place of occurrence of the external cause; Y99.8 Other external cause status
CPT/HCPCS: 36415; 73590; 73600; 80048; 80053; 82040; 82962; 83036; 84134; 85025; 93970; 99285; A6261; C1893; J0690; J1650; J1815; J1885; J1940; J7030